=== PATIENT | male | born 1975 | race African-American/Black ===

== ENCOUNTER 2016-03-20 16:16 | Emergency (ER) | payer SELFPAY ==
[2016-03-20] MEDS ORDERED: AMOXicillin 250 MG CAP ONE (17:38)
[2016-03-20] MEDS ORDERED: Benzonatate 100 MG CAP ONE (17:38)
--- NOTE | 2016-03-20 17:48 | ERRECORD ---
[facility] EMERGENCY RECORD HPI COUGH (17:38 LLDO) CHIEF COMPLAINT: Patient presents for evaluation of cough, productive of yellow sputum, Patient presents for evaluation of says this is the way his bronchitis always starts and he "wants to head it off.". HISTORIAN: History provided by patient. LOCATION: Symptoms are generalized. QUALITY: Denies tightness, Denies wheezing. SEVERITY: Maximum severity of symptoms moderate, Currently symptoms are moderate. TIME COURSE: Gradual onset of symptoms, Symptoms are worsening, are constant. ASSOCIATED WITH: Associated symptoms reviewed, Associated with dyspnea on exertion, Associated with fever, subjective, Associated with upper respiratory infection, No associated wheezing, No associated weakness. EXACERBATED BY: Patient's condition exacerbated by deep breaths, Patient's condition exacerbated by exercise, Patient's condition exacerbated by lying flat. RELIEVED BY: Patient's condition relieved by rest, Patient's condition relieved by upright position. ROS CONSTITUTIONAL: Historian reports fatigue, reports fever, reports weakness. (17:40 LLDO) EYES: Negative eye review of systems, Historian denies eye pain, denies eye redness, denies eye discharge. (17:42 LLDO) ENT: Historian reports sore throat. (17:40 LLDO) CARDIOVASCULAR: Historian reports dyspnea on exertion. (17:40 LLDO) RESPIRATORY: Historian reports cough, reports sputum. described as thick, yellow, Historian denies stridor, denies wheezing. (17:40 LLDO) MUSCULOSKELETAL: Negative musculoskeletal review of systems, Historian denies arthralgias, denies fall, denies injury, denies myalgias. (17:42 LLDO) NEUROLOGIC: Historian denies confusion, denies dizziness, denies dysphasia, denies focal weakness, denies gait changes, reports headache, denies irritability. (17:40 LLDO) ALLERGIC/IMMUNOLOGIC: Normal allergy/immunologic system review, Historian denies eczema, denies environmental allergies, denies food allergies. (17:42 LLDO) PSYCHIATRIC: Negative psychiatric review of systems, Historian denies alcohol abuse, denies anxiety, denies depression, denies drug abuse, denies hallucinations. (17:42 LLDO) NOTES: All systems reviewed, negative except as described above. (17:40 LLDO) PAST MEDICAL HISTORY MEDICAL HISTORY: Past medical history includes pulmonary disease, SEASONAL BRONCHITIS, Notes: SEASONAL ALLERGIES,. (16:25 &a-1R&a+25V*p+0X*f1819R*c202B*c15G*c2P*p-0X&a-25V&a+1R Name: Siddharth Gordon : 1975 M40 MedRec: [id number] AcctNum: [id number] Prepared: Marion Mar 20, 2016 17:59 by Interface Page 1 of 3 pMD [facility] EMERGENCY RECORD AWAT) MALE SURGICAL HISTORY: Patient has no surgical history. (16:25 AWAT) PSYCHIATRIC HISTORY: No previous psychiatric history, . (16:25 AWAT) SOCIAL HISTORY: Patient denies alcohol use, Patient denies drug use, Patient currently uses tobacco. (16:25 AWAT) FAMILY HISTORY: No known family hisotry. (16:25 AWAT) NOTES: Nursing records reviewed, Agree with nursing records, Medication list reviewed. (17:42 LLDO) KNOWN ALLERGIES No Known Drug Allergies CURRENT MEDICATIONS (16:24 AWAT) None VITAL SIGNS (16:23 AWAT) VITAL SIGNS: BP: 169/108, Pulse: 93, Resp: 18, Temp: 98.1 (Tympanic), Pain: 4 (Intermittent), O2 sat: 99 on Room Air, Time: 03/20/2016 16:23. PHYSICAL EXAM CONSTITUTIONAL: Vital Signs Reviewed, Patient afebrile, Pulse normal, Blood pressure, hypertensive, missed his bp meds today, Respiratory rate normal, Normal pulse oximetry, Patient appears non toxic, Patient appears pain free, Patient alert and oriented to person, place and time, Nursing notes reviewed. (17:41 LLDO) HEAD: Head exam normal, Head exam included findings of head atraumatic, normocephalic. (17:42 LLDO) EYES: Eye exam normal, Eye exam included findings of eyelids normal to inspection, Pupils equally round and reactive to light, Extraocular muscles intact. (17:42 LLDO) ENT: ENT exam normal, Ear exam normal, Nose exam normal. (17:42 LLDO) NECK: Neck exam normal, Neck exam included findings of normal range of motion, Trachea midline, no meningeal signs, no tenderness. (17:42 LLDO) RESPIRATORY CHEST: Respiratory exam included findings of no respiratory distress, No wheezing, Rales present, Chest exam included findings of chest movement symmetrical, Chest expansion equal, RALES MILD AND SCATTERED. (17:41 LLDO) BACK: Back exam normal, Back exam included findings of normal inspection, range of motion normal. (17:42 LLDO) UPPER EXTREMITY: Upper extremity exam normal, Upper extremity exam included findings of inspection normal, Range of motion normal. (17:42 LLDO) LOWER EXTREMITY: Lower extremity exam normal, Lower extremity &a-1R&a+25V*p+0X*g0549K*c202B*c15G*c2P*p-0X&a-25V&a+1R Name: Siddharth Gordon : 1975 M40 MedRec: [id number] AcctNum: [id number] Prepared: Marion Mar 20, 2016 17:59 by Interface Page 2 of 3 pMD [facility] EMERGENCY RECORD exam included findings of inspection normal, Range of motion normal. (17:42 LLDO) NEURO: Neuro exam normal, Neuro exam findings include patient oriented to person, place and time, Speech normal, Floyd coma scale 15. (17:42 LLDO) SKIN: Skin exam normal, Skin exam included findings of skin warm, dry, and normal in color, no rash. (17:42 LLDO) PSYCHIATRIC: Psychiatric exam normal, Psychiatric exam included findings of patient oriented to person place and time, Normal affect, Judgment normal. (17:42 LLDO) MEDICATION ADMINISTRATION SUMMARY Drug Name: Birdie Naranjo, Dose Ordered: 200 mg, Route: Oral, Status: Given, Time: 17:36 03/20/2016, Drug Name: amoxicillin, Dose Ordered: 500 mg, Route: Oral, Status: Given, Time: 17:35 03/20/2016, Detailed record available in Medication Service section. PROBLEM LIST No recorded problems DIAGNOSIS (17:34 LLDO) FINAL: PRIMARY: Acute bronchitis. PRESCRIPTION (17:36 LLDO) amoxicillin: CAPSULE (HARD, SOFT, ETC.) : 500 mg : ORAL : Quantity: 1 Unit: cap(s) Route: ORAL Schedule: 3 times a day Dispense: 30 Unit: tab(s) May substitute. Refills: No Refills . NOTES: No Refills. Phenergan DM: SYRUP : : ORAL : Quantity: 1-2 Unit: teaspoon Route: ORAL Schedule: every 4 hours prn Dispense: 180 Unit: mL May substitute. Refills: No Refills . NOTES: ^s=No Refills No Refills. DISPOSITION PATIENT: Disposition Type: Discharge, Disposition: *Discharge Home. (17:34 WILLIAMS) Patient left the department. (17:56 OLEGARIO) Mariscal: TELMA=TIM Spence, Vivek MELVIN=TIM Nazario, Naomie LLDO=MD John, Augusto &a-1R&a+25V*p+0X*b6468Z*c202B*c15G*c2P*p-0X&a-25V&a+1R Name: Siddharth Gordon : 1975 M40 MedRec: [id number] AcctNum: [id number] Prepared: Marion Mar 20, 2016 17:59 by Interface Page 3 of 3 pMD MTDD
--- NOTE | 2016-03-20 17:54 | PICIS ---
[facility] EMERGENCY RECORD TRIAGE (MonMar 20, 2016 16:24 AWAT) TRIAGE NOTES: DRY COUGH X 2 DAYS. PT SAYS IT'S A REBOUNDING BRONCHITIS. (MonMar 20, 2016 16:24 AWAT) PATIENT: NAME: Siddharth Gordon, AGE: 40, GENDER: male, : Sat 1975, TIME OF GREET: MonMar 20, 2016 16:18, PREFERRED LANGUAGE: Bulgarian, ETHNICITY: Not or , FALL RISK: NO, ECODE BILLING MAP: [facility], SSN: [id number], Zip Code: [address], KG WEIGHT: 106.59, PHONE: , , , PERSON ID: [id number], PCP: NONE. (MonMar 20, 2016 16:24 AWAT) COMPLAINT: POSS BRONCHITIS. (Loyal Mar 20, 2016 16:24 AWAT) ADMISSION: URGENCY: 5 Fast Track, ADMISSION SOURCE: Home, TRANSPORT: Walk-in, BED: ED -04. (Loyal Mar 20, 2016 16:24 AWAT) IMMUNIZATIONS: Flu vaccine not up to date, Tetanus not up to date. (16:25 AWAT) SIRS SCORING: Heart Rate 55-109 (0), Temp range 96.8-101.1 (0), respiratory rate 12-24 (0), Mental Status altered: no (0). (16:25 AWAT) PROVIDERS: TRIAGE NURSE: Vivek Spence RN. (Loyal Mar 20, 2016 16:24 AWAT) VITAL SIGNS: BP 169/108, Pulse 93, Resp 18, Temp 98.1, (Tympanic), Pain 4, (Intermittent), O2 Sat 99, on Room Air, Time 03/20/2016 16:23. (16:23 AWAT) PREVIOUS VISIT ALLERGIES: No Known Drug Allergies. (MonMar 20, 2016 16:24 AWAT) No Known Drug Allergies. (16:25 AWAT) KNOWN ALLERGIES No Known Drug Allergies CURRENT MEDICATIONS (16:24 AWAT) None VITAL SIGNS (16:23 AWAT) VITAL SIGNS: BP: 169/108, Pulse: 93, Resp: 18, Temp: 98.1 (Tympanic), Pain: 4 (Intermittent), O2 sat: 99 on Room Air, Time: 03/20/2016 16:23. NURSING ASSESSMENT: RESPIRATORY /CHEST (16:27 AWAT) CONSTITUTIONAL: Simple assessment performed, Patient arrives ambulatory, Gait steady, History obtained from patient, Patient appears comfortable, Patient cooperative, Patient alert, Oriented to person, place and time, Skin warm, Skin dry, Skin normal in color, Mucous membranes pink, Mucous membranes moist, Patient is well-groomed, Patient complains of POSSIBLE BRONCHITIS. PAIN: aching pain, dull pain, midsternal, on a scale 0-10 patient rates pain as 4, PT HAS DULL PAIN TO HIS CHEST WHEN HE COUGHS. OTHERWISE, NO PAIN. RESPIRATORY/CHEST: Breath sounds clear, Respiratory assessment &a-1R&a+25V*p+0X*y7547K*c202B*c15G*c2P*p-0X&a-25V&a+1R Name: Siddharth Gordon : 1975 M40 MedRec: [id number] AcctNum: [id number] Prepared: Marion Mar 20, 2016 18:05 by Interface Page 1 of 6 pMD [facility] EMERGENCY RECORD findings include respiratory effort easy, Respirations regular, Conversing normally, Neck and chest exam findings include trachea midline, Chest expansion equal, Chest movement symmetrical, Associated with cough, barky, dry, no associated fever. ENT: Ear assessment findings include ear normal to inspection, Nasal assessment findings include nose normal to inspection, Mouth and throat assessment findings include mouth inspection normal. NOTES: Patient tolerated procedure well. SAFETY: Side rails up, Cart/Stretcher in lowest position, Call light within reach, Hospital ID band on, Physician notified of above findings. NURSING PROCEDURE: DISCHARGE NOTE (17:45 JPER) DISCHARGE: Patient discharged to home, ambulating without assistance, driving self, unaccompanied, Summary of Care printed/ provided, Patient requested and was provided an electronic copy of Discharge Instructions, Transition record given to patient, Discharge instructions given to patient, Prescriptions given and instructions on side effects given, Above person(s) verbalized understanding of discharge instructions and follow-up care, Patient treated and evaluated by physician, Notes: PT VOICED CONCERNS ABOUT BEING PRESCRIBED PHENERGAN DM INSTEAD OF PHENERGAN WITH CODIENE; I SPOKE WITH DR LOPEZ WHO ELECTED NOT TO CHANGE RX. BELONGINGS: Belongings remain with patient, Valuables remain with patient. NOTES: Emotional support needed and given. SAFETY: Notes: REFUSED DC VS. MEDICATION ADMINISTRATION SUMMARY Drug Name: Tessalagatha Perles, Dose Ordered: 200 mg, Route: Oral, Status: Given, Time: 17:36 03/20/2016, Drug Name: amoxicillin, Dose Ordered: 500 mg, Route: Oral, Status: Given, Time: 17:35 03/20/2016, Detailed record available in Medication Service section. MEDICATION SERVICE amoxicillin: Order: amoxicillin (amoxicillin trihydrate) - Dose: 500 mg : Oral Schedule: Now Ordered by: Augusto Lopez MD Entered by: MD Marion Nielson Mar 20, 2016 17:34 Documented as given by: TIM France Mar 20, 2016 17:35 Patient, Medication, Dose, Route and Time verified prior to administration. Amount given: 500MG, Site: Medication administered P.O., Correct patient, time, route, dose and medication confirmed prior to administration, Patient advised of actions and side-effects prior to administration, Allergies confirmed and medications reviewed prior to &a-1R&a+25V*p+0X*c3086B*c202B*c15G*c2P*p-0X&a-25V&a+1R Name: Siddharth Gordon Cecilia : 1975 M40 MedRec: [id number] AcctNum: [id number] Prepared: Marion Mar 20, 2016 18:05 by Interface Page 2 of 6 pMD [facility] EMERGENCY RECORD administration, Administered by BLADE DUMONT. Birdie Perleden: Order: Thaoon Perles (benzonatate) - Dose: 200 mg : Oral Schedule: Now Ordered by: Augusto Lopez MD Entered by: MD Marion Nielson Mar 20, 2016 17:34 Documented as given by: TIM France Mar 20, 2016 17:36 Patient, Medication, Dose, Route and Time verified prior to administration. Amount given: 200MG, Site: Medication administered P.O., Correct patient, time, route, dose and medication confirmed prior to administration, Patient advised of actions and side-effects prior to administration, Allergies confirmed and medications reviewed prior to administration, Administered by BLADE DUMONT. HPI COUGH (17:38 LLDO) CHIEF COMPLAINT: Patient presents for evaluation of cough, productive of yellow sputum, Patient presents for evaluation of says this is the way his bronchitis always starts and he "wants to head it off.". HISTORIAN: History provided by patient. LOCATION: Symptoms are generalized. QUALITY: Denies tightness, Denies wheezing. SEVERITY: Maximum severity of symptoms moderate, Currently symptoms are moderate. TIME COURSE: Gradual onset of symptoms, Symptoms are worsening, are constant. ASSOCIATED WITH: Associated symptoms reviewed, Associated with dyspnea on exertion, Associated with fever, subjective, Associated with upper respiratory infection, No associated wheezing, No associated weakness. EXACERBATED BY: Patient's condition exacerbated by deep breaths, Patient's condition exacerbated by exercise, Patient's condition exacerbated by lying flat. RELIEVED BY: Patient's condition relieved by rest, Patient's condition relieved by upright position. ROS CONSTITUTIONAL: Historian reports fatigue, reports fever, reports weakness. (17:40 LLDO) EYES: Negative eye review of systems, Historian denies eye pain, denies eye redness, denies eye discharge. (17:42 LLDO) ENT: Historian reports sore throat. (17:40 LLDO) CARDIOVASCULAR: Historian reports dyspnea on exertion. (17:40 LLDO) RESPIRATORY: Historian reports cough, reports sputum. described as thick, yellow, Historian denies stridor, denies wheezing. (17:40 LLDO) MUSCULOSKELETAL: Negative musculoskeletal review of systems, Historian denies arthralgias, denies fall, denies injury, denies myalgias. (17:42 LLDO) &a-1R&a+25V*p+0X*s9211O*c202B*c15G*c2P*p-0X&a-25V&a+1R Name: Siddharth Gordon : 1975 M40 MedRec: [id number] AcctNum: [id number] Prepared: Marion Mar 20, 2016 18:05 by Interface Page 3 of 6 pMD [facility] EMERGENCY RECORD NEUROLOGIC: Historian denies confusion, denies dizziness, denies dysphasia, denies focal weakness, denies gait changes, reports headache, denies irritability. (17:40 LLDO) ALLERGIC/IMMUNOLOGIC: Normal allergy/immunologic system review, Historian denies eczema, denies environmental allergies, denies food allergies. (17:42 LLDO) PSYCHIATRIC: Negative psychiatric review of systems, Historian denies alcohol abuse, denies anxiety, denies depression, denies drug abuse, denies hallucinations. (17:42 LLDO) NOTES: All systems reviewed, negative except as described above. (17:40 LLDO) PAST MEDICAL HISTORY MEDICAL HISTORY: Past medical history includes pulmonary disease, SEASONAL BRONCHITIS, Notes: SEASONAL ALLERGIES,. (16:25 AWAT) MALE SURGICAL HISTORY: Patient has no surgical history. (16:25 AWAT) PSYCHIATRIC HISTORY: No previous psychiatric history, . (16:25 AWAT) SOCIAL HISTORY: Patient denies alcohol use, Patient denies drug use, Patient currently uses tobacco. (16:25 AWAT) FAMILY HISTORY: No known family hisotry. (16:25 AWAT) NOTES: Nursing records reviewed, Agree with nursing records, Medication list reviewed. (17:42 LLDO) PHYSICAL EXAM CONSTITUTIONAL: Vital Signs Reviewed, Patient afebrile, Pulse normal, Blood pressure, hypertensive, missed his bp meds today, Respiratory rate normal, Normal pulse oximetry, Patient appears non toxic, Patient appears pain free, Patient alert and oriented to person, place and time, Nursing notes reviewed. (17:41 LLDO) HEAD: Head exam normal, Head exam included findings of head atraumatic, normocephalic. (17:42 LLDO) EYES: Eye exam normal, Eye exam included findings of eyelids normal to inspection, Pupils equally round and reactive to light, Extraocular muscles intact. (17:42 LLDO) ENT: ENT exam normal, Ear exam normal, Nose exam normal. (17:42 LLDO) NECK: Neck exam normal, Neck exam included findings of normal range of motion, Trachea midline, no meningeal signs, no tenderness. (17:42 LLDO) RESPIRATORY CHEST: Respiratory exam included findings of no respiratory distress, No wheezing, Rales present, Chest exam included findings of chest movement symmetrical, Chest expansion equal, RALES MILD AND SCATTERED. (17:41 LLDO) BACK: Back exam normal, Back exam included findings of normal inspection, range of motion normal. (17:42 LLDO) &a-1R&a+25V*p+0X*c6271V*c202B*c15G*c2P*p-0X&a-25V&a+1R Name: Siddharth Gordon : 1975 M40 MedRec: [id number] AcctNum: [id number] Prepared: Marion Mar 20, 2016 18:05 by Interface Page 4 of 6 pMD [facility] EMERGENCY RECORD UPPER EXTREMITY: Upper extremity exam normal, Upper extremity exam included findings of inspection normal, Range of motion normal. (17:42 LLDO) LOWER EXTREMITY: Lower extremity exam normal, Lower extremity exam included findings of inspection normal, Range of motion normal. (17:42 LLDO) NEURO: Neuro exam normal, Neuro exam findings include patient oriented to person, place and time, Speech normal, Hatfield coma scale 15. (17:42 LLDO) SKIN: Skin exam normal, Skin exam included findings of skin warm, dry, and normal in color, no rash. (17:42 LLDO) PSYCHIATRIC: Psychiatric exam normal, Psychiatric exam included findings of patient oriented to person place and time, Normal affect, Judgment normal. (17:42 LLDO) EVENTS TRANSFER: Triage to Emergency Main ED -04. (Marion Mar 20, 2016 16:24 AWAT) Removed from Emergency Main ED -04. (17:56 JPER) PROBLEM LIST No recorded problems DIAGNOSIS (17:34 LLDO) FINAL: PRIMARY: Acute bronchitis. DISPOSITION PATIENT: Disposition Type: Discharge, Disposition: *Discharge Home. (17:34 LLDO) Patient left the department. (17:56 JPER) INSTRUCTION (17:36 LLDO) DISCHARGE: BRONCHITIS, ABX TX (ADULT). FOLLOWUP: Follow up with Primary Care Physician in 10-14 days. SPECIAL: Follow-up with your PCP. PRESCRIPTION (17:36 LLDO) amoxicillin: CAPSULE (HARD, SOFT, ETC.) : 500 mg : ORAL : Quantity: 1 Unit: cap(s) Route: ORAL Schedule: 3 times a day Dispense: 30 Unit: tab(s) May substitute. Refills: No Refills . NOTES: No Refills. Phenergan DM: SYRUP : : ORAL : Quantity: 1-2 Unit: teaspoon Route: ORAL Schedule: every 4 hours prn Dispense: 180 Unit: mL May substitute. Refills: No Refills . NOTES: ^s=No Refills No Refills. IMAGING &a-1R&a+25V*p+0X*y8626H*c202B*c15G*c2P*p-0X&a-25V&a+1R Name: Siddharth Gordon : 1975 M40 MedRec: [id number] AcctNum: [id number] Prepared: Marion Mar 20, 2016 18:05 by Interface Page 5 of 6 pMD [facility] EMERGENCY RECORD *DISCHARGE INSTRUCTIONS RECEIPT: Image captured from scanner. (17:53 JPER) *SUPPLY CHARGE SHEET: Image captured from scanner. (17:54 JPER) ADMIN DIGITAL SIGNATURE: MD Lopez Lloyd. (17:43 LLDO) TIM Nazario Jana. (17:56 JPER) Mariscal: AWAT=TIM Spence Adam JPER=TIM Nazario Jana LLDO=MD Lopez Lloyd &a-1R&a+25V*p+0X*e0120A*c202B*c15G*c2P*p-0X&a-25V&a+1R Name: Siddharth Gordon : 1975 10 MedRec: [id number] AcctNum: [id number] Prepared: Marion Mar 20, 2016 18:05 by Interface Page 6 of 6 D [facility] MEDICATION RECONCILIATION You were seen in the Emergency Department on: Marion Mar 20, 2016 KNOWN ALLERGIES No Known Drug Allergies MEDICATIONS GIVEN WHILE IN THE EMERGENCY DEPARTMENT amoxicillin (amoxicillin trihydrate) - Dose: 500 milligram(s) : Oral Tessalon Perles (benzonatate) - Dose: 200 milligram(s) : Oral HOME MEDICATIONS None Notes from the emergency department Reviewed with family Reviewed with patient PRESCRIPTIONS (2) Printed (2) amoxicillin : CAPSULE (HARD, SOFT, ETC.) : 500 mg : ORAL Quantity: 1, Unit: cap(s), Route: ORAL, Schedule: 3 times a day, Dispense: 30 Unit: tab(s) &a-1R&a+25V*p+0X*z8583R*c202B*c15G*c2P*p-0X&a-25V&a+1R Name: Heidi Siddharth Brooks : 1975 M40 MedRec: [id number] AcctNum: [id number] Prepared: Marion Mar 20, 2016 18:05 by Interface pMD VINH
== END 2016-03-20 17:45 | disposition home or self-care (01) ==
LOC: MADERS 16:16
DX: J20.9 Acute bronchitis, unspecified (principal); F17.200 Nicotine dependence, unspecified, uncomplicated
CPT/HCPCS: 99283

== ENCOUNTER 2016-06-12 22:09 | Emergency (ER) | payer SELFPAY ==
[2016-06-12] MEDS ORDERED: AMOXicillin 250 MG CAP ONE (22:56)
[2016-06-12] MEDS ORDERED: Benzonatate 100 MG CAP ONE (22:56)
== END 2016-06-12 23:00 | disposition home or self-care (01) ==
LOC: MADERS 22:09
DX: J42 Unspecified chronic bronchitis (principal)
CPT/HCPCS: 99283

== ENCOUNTER 2016-11-07 17:18 | Emergency (ER) | payer SELFPAY | END 2016-11-07 17:50 | disposition home or self-care (01) | LOC: MADERS 17:18 | DX: J06.9 Acute upper respiratory infection, unspecified (principal) | CPT/HCPCS: 99283 ==

== ENCOUNTER 2017-02-25 13:32 | Emergency (ER) | payer SELFPAY | END 2017-02-25 16:25 | disposition home or self-care (01) | LOC: MADERS 13:32 | DX: J20.9 Acute bronchitis, unspecified (principal); F17.210 Nicotine dependence, cigarettes, uncomplicated | CPT/HCPCS: 87804; 99283 ==

== ENCOUNTER 2017-06-18 10:16 | Emergency (ER) | payer SELFPAY ==
[2017-06-18] MEDS ORDERED: AMOXicillin 250 MG CAP ONE (10:42)
[2017-06-18] MEDS ORDERED: Naproxen 500 MG TAB ONE (11:00)
== END 2017-06-18 11:00 | disposition home or self-care (01) ==
LOC: MADERS 10:16
DX: K02.9 Dental caries, unspecified (principal); J30.2 Other seasonal allergic rhinitis; F17.210 Nicotine dependence, cigarettes, uncomplicated
CPT/HCPCS: 99282

== ENCOUNTER 2018-02-16 21:30 | Emergency (ER) | payer SELFPAY | END 2018-02-16 21:50 | disposition home or self-care (01) | LOC: MADERS 21:30 | DX: R05 Cough (principal); F17.210 Nicotine dependence, cigarettes, uncomplicated | CPT/HCPCS: 99281 ==